=== PATIENT | female | born 1960 | race Caucasian/White ===

== ENCOUNTER 2021-01-06 16:25 | Emergency (ER) | payer MEDICARE, MEDICAID ==
[~2021-01-06] VITALS: Ht 160 cm; Wt 129.0 kg
--- NOTE | 2021-01-06 17:09 | Diagnostic Imaging Report ---
HISTORY: Pneumonia. TECHNIQUE: Frontal view of the chest. COMPARISON: None. FINDINGS: Lung volumes are normal. Haziness over the lung bases is thought to be due to overlying soft tissue. No dense consolidation is seen. There is no pleural effusion or pneumothorax. The cardiac silhouette is normal in size. IMPRESSION: 1. No acute pulmonary abnormality. Dictated by: Dictated on workstation # [id number]
[2021-01-06 17:17] LABS: BASOPHILS % (AUTO) 0 % (0-10); EOSINOPHILS # (AUTO) 0.2 10^3/uL (0.0-0.3); EOSINOPHILS % (AUTO) 2 % (0-10); HEMATOCRIT 45 % (35-52); LYMPHOCYTES # (AUTO) 1.3 10^3/uL (1.0-4.0); LYMPHOCYTES % (AUTO) 17 % (12-44); MEAN CORPUSCULAR HEMOGLOBIN 31 pg (25-34); MEAN CORPUSCULAR HGB CONC 31 g/dL (32-36); MEAN CORPUSCULAR VOLUME 98 fL (80-99); MONOCYTES # (AUTO) 0.3 10^3/uL (0.0-1.0); MONOCYTES % (AUTO) 5 % (0-12); NEUTROPHILS # (AUTO) 5.7 10^3/uL (1.8-7.8); NEUTROPHILS % (AUTO) 76 % (42-75); PLATELET COUNT 189 10^3/uL (130-400); WHITE BLOOD COUNT 7.5 10^3/uL (4.3-11.0)
[2021-01-06 17:34] LABS: ALBUMIN 3.6 GM/DL (3.2-4.5); POTASSIUM 4.5 MMOL/L (3.6-5.0)
[2021-01-06 17:36] LABS: INR 1.2 (0.8-1.4); PROTHROMBIN TIME PATIENT 15.3 SEC (12.2-14.7)
[2021-01-06 17:37] LABS: TOTAL PROTEIN 6.9 GM/DL (6.4-8.2)
[2021-01-06 17:39] LABS: BILIRUBIN,TOTAL 0.3 MG/DL (0.1-1.0)
[2021-01-06 17:40] LABS: CREATININE SERUM 1.31 MG/DL (0.60-1.30)
[2021-01-06] MEDS ORDERED: LACTATED RINGERS 1,000 ML IV ONE (18:00)
--- NOTE | 2021-01-06 18:40 | ED General ---
General Chief Complaint: Cough/Cold/Flu Symptoms Stated Complaint: DX: PNEUMONIA / LOW O2 Nursing Triage Note: PT TO ROOM 10 PER W/C PT CO OF COLD AND COUGH, WAS AT DR OFFICE THIS AM AND SAT WAS 84% PT STATES AT HOME HAS BEEN 94%, PT DENIES FEVERS. STATES HAD FIRST COVID SHOT APPROX 1 MONTH AGO. Nursing Sepsis Screen: No Definite Risk Source of Information: Patient Exam Limitations: No Limitations History of Present Illness Date Seen by Provider: Jan 06, 2021 Time Seen by Provider: 16:27 Initial Comments This 60-year-old woman presents to the emergency room as directed by the [facility] clinic in [place]. She reportedly was treated for pneumonia starting on December 29 with multiple antibiotics. She has been feeling much better. However, during her follow-up visit in the office today she was noted to have an oxygen saturation in the mid 80s. Patient reports her oxygen has never dropped below 93 at home. She does not have increased shortness of breath, fever, or other worsening symptoms. She does have reactive airway disease and has needed to use steroids in the past. She presents to the ER today because she was advised to, not because she feels ill. She has been on doxycycline and Cefpodoxime. 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 Allergies and Home Medications Allergies Coded Allergies: No Known Drug Allergies (Unverified , 01/06/21) Patient Home Medication List Home Medication List Reviewed: Yes Review of Systems Review of Systems Constitutional: no symptoms reported EENTM: no symptoms reported Respiratory: see HPI Cardiovascular: no symptoms reported Gastrointestinal: no symptoms reported Genitourinary: no symptoms reported : No Musculoskeletal: no symptoms reported Skin: no symptoms reported Psychiatric/Neurological: No Symptoms Reported Hematologic/Lymphatic: No Symptoms Reported Past Hyouqgx-Lgfocn-Vsbjxm Hx Past Med/Social Hx: Reviewed Nursing Past Med/Soc Hx Patient Social History Recent Infectious Disease Expo: No Past Medical History Surgeries: Yes (Necrotizing fasciitis of right hip area) Section Respiratory: Yes Asthma (Reactive airway disease) Cardiac: Yes Deep Vein Thrombosis Neurological: Yes (Tremor) : No Genitourinary: Yes Renal Failure (Chronic kidney disease) Gastrointestinal: No Musculoskeletal: No Endocrine: Yes (Empty sella syndrome) Diabetes, Insulin dep, Hypothyroidsim HEENT: No Cancer: No Psychosocial: Yes Bipolar, Depression Physical Exam Vital Signs Vital Signs - First Documented 01/06/21 17:03 Temp 35.7 Pulse 100 Resp 18 B/P (MAP) 102/72 (82) Pulse Ox 97 O2 Delivery Room Air Capillary Refill : Less Than 3 Seconds Height, Weight, BMI Height: '" Weight: lbs. oz. 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 Norm as Tested Skin: Normal Color, Warm/Dry Focused Exam Lactate Level 01/06/21 17:03: Lactic Acid Level 3.55*H Lactic Acid Level Laboratory Tests Test 01/06/21 17:03 Lactic Acid Level 3.55 MMOL/L (0.50-2.00) *H Progress/Results/Core Measures Suspected Sepsis Recent Fever Within 48 Hours: No Infection Criteria Present: None New/Unexplained Altered Menta: No Sepsis Screen: No Definite Risk SIRS Temperature: Pulse: 100 Respiratory Rate: 18 Laboratory Tests 01/06/21 17:03: White Blood Count 7.5 Blood Pressure 102 /72 Mean: 82 01/06/21 17:03: Lactic Acid Level 3.55*H Laboratory Tests 01/06/21 17:03: Creatinine 1.31H, INR Comment 1.2, Platelet Count 189, Total Bilirubin 0.3 Results/Orders Lab Results Laboratory Tests Test 01/06/21 17:03 Range/Units White Blood Count 7.5 4.3-11.0 10^3/uL Red Blood Count 4.59 3.80-5.11 10^6/uL Hemoglobin 14.0 11.5-16.0 g/dL Hematocrit 45 35-52 % Mean Corpuscular Volume 98 80-99 fL Mean Corpuscular Hemoglobin 31 25-34 pg Mean Corpuscular Hemoglobin Concent 31 L 32-36 g/dL Red Cell Distribution Width 16.9 H 10.0-14.5 % Platelet Count 189 130-400 10^3/uL Mean Platelet Volume 10.0 9.0-12.2 fL Immature Granulocyte % (Auto) 0 % Neutrophils (%) (Auto) 76 H 42-75 % Lymphocytes (%) (Auto) 17 12-44 % Monocytes (%) (Auto) 5 0-12 % Eosinophils (%) (Auto) 2 0-10 % Basophils (%) (Auto) 0 0-10 % Neutrophils # (Auto) 5.7 1.8-7.8 10^3/uL Lymphocytes # (Auto) 1.3 1.0-4.0 10^3/uL Monocytes # (Auto) 0.3 0.0-1.0 10^3/uL Eosinophils # (Auto) 0.2 0.0-0.3 10^3/uL Basophils # (Auto) 0.0 0.0-0.1 10^3/uL Immature Granulocyte # (Auto) 0.0 0.0-0.1 10^3/uL Prothrombin Time 15.3 H 12.2-14.7 SEC INR Comment 1.2 0.8-1.4 Activated Partial Thromboplast Time 38 H 24-35 SEC Sodium Level 140 135-145 MMOL/L Potassium Level 4.5 3.6-5.0 MMOL/L Chloride Level 104 98-107 MMOL/L Carbon Dioxide Level 23 21-32 MMOL/L Anion Gap 13 5-14 MMOL/L Blood Urea Nitrogen 21 H 7-18 MG/DL Creatinine 1.31 H 0.60-1.30 MG/DL Estimat Glomerular Filtration Rate 42 BUN/Creatinine Ratio 16 Glucose Level 131 H 70-105 MG/DL Lactic Acid Level 3.55 *H 0.50-2.00 MMOL/L Calcium Level 9.0 8.5-10.1 MG/DL Corrected Calcium 9.3 8.5-10.1 MG/DL Total Bilirubin 0.3 0.1-1.0 MG/DL Aspartate Amino Transf (AST/SGOT) 13 5-34 U/L Alanine Aminotransferase (ALT/SGPT) 12 0-55 U/L Alkaline Phosphatase 90 40-136 U/L Lactate Dehydrogenase 163 125-220 U/L C-Reactive Protein High Sensitivity 2.22 H 0.00-0.50 MG/DL Total Protein 6.9 6.4-8.2 GM/DL Albumin 3.6 3.2-4.5 GM/DL Procalcitonin 0.06 <0.10 NG/ML Coronavirus 2019 (ANJU) Not Detected Not Detecte Micro Results Microbiology 01/06/21 Influenza Types A,B Antigen (BEATRIZ) - Final, Complete My Orders Orders - BARRY RETANA MD Cbc With Automated Diff (01/06/21 16:27) Comprehensive Metabolic Panel (01/06/21 16:) Blood Culture (01/06/21 16:) Sputum Culture (01/06/21 16:) Urinalysis (01/06/21 16:) Urine Culture (01/06/21 16:) Protime With Inr (01/06/21:) Partial Thromboplastin Time (01/06/21:) Chest 1 View, Ap/Pa Only (01/06/21 16:) Ed Iv/Invasive Line Start (01/06/21 16:27) Ed Iv/Invasive Line Start (01/06/21 16:27) Vital Signs Adult Sepsis Patie Q15M (01/06/21 16:27) O2 (01/06/21 16:27) Remove Rings In Anticipation O (01/06/21 16:) Lactic Acid Analyzer (01/06/21 16:) Influenza A And B Antigens (01/06/21 16:) Procalcitonin (Pct) (01/06/21 16:27) Hs C Reactive Protein (01/06/21 16:27) LDH (01/06/21 16:27) Covid 19 Inhouse Test (01/06/21 16:27) Lactated Ringers (Lr 1000 Ml Iv Solution (01/06/21 18:00) Prednisone Tablet (Deltasone Tablet) (01/06/21 18:45) Medications Given in ED Current Medications Medications Dose Ordered Sig/Cory Route Start Time Stop Time Status Last Admin Dose Admin Lactated Ringer's 1,000 ml @ 0 mls/hr Q0M ONCE IV 01/06/21 18:00 01/06/21 18:01 DC 01/06/21 18:13 1,000 MLS/HR Vital Signs/I&O 01/06/21 17:03 Temp 35.7 Pulse 100 Resp 18 B/P (MAP) 102/72 (82) Pulse Ox 97 O2 Delivery Room Air Capillary Refill : Less Than 3 Seconds Blood Pressure Mean: 82 Progress Note : Progress Note Patient was seen and evaluated. Vital signs were stable on room air. She did not require any oxygen supplementation. Work-up showed no evidence of obvious bacterial infection. Lactic acid was elevated which was thought to reflect hydration status. Patient did appear somewhat dry based on labs, mucous membranes, blood pressure, etc. She did not appear septic. A dose of prednisone was administered in the ER to help with her COPD exacerbation. It was noted that patient has multiple sedating medications and her medication profile. This may have contributed to the hypoxia she experienced at the clinic. I am advising that she review her medications with her PCP. Diagnostic Imaging Diagonstic Imaging: Xray Plain Films/CT/US/NM/MRI: chest Comments Chest x-ray viewed by me and report reviewed. See report below: NAME: SONIA FARR [facility] REC#: [id number] PT STATUS: REG ER : 1960 PHYSICIAN: BARRY RETANA MD ADMIT DATE: 01/06/21/ER Signed Date of Exam:01/06/21 CHEST 1 VIEW, AP/PA ONLY HISTORY: Pneumonia. TECHNIQUE: Frontal view of the chest. COMPARISON: None. FINDINGS: Lung volumes are normal. Haziness over the lung bases is thought to be due to overlying soft tissue. No dense consolidation is seen. There is no pleural effusion or pneumothorax. The cardiac silhouette is normal in size. IMPRESSION: 1. No acute pulmonary abnormality. Dictated by: Dictated on workstation # [id number] Dict: 01/06/21 1706 Trans: 01/06/211721 AS6 [id number] Interpreted by: ROLAN HOFFMAN MD Electronically signed by: ROLAN HOFFMAN MD 01/06/21 172 Departure Impression Primary Impression: COPD exacerbation Additional Impression: Hypoxic episode Disposition: 01 HOME, SELF-CARE Condition: Improved Departure-Patient Inst. Decision time for Depature: 19:00 Referrals: EZEQUIEL HUMPHREYS (PCP) Primary Care Physician Patient Instructions: COPD Exacerbation, Adult ED Add. Discharge Instructions: Work toward quitting smoking as rapidly as possible. Continue to use your inhaled medications as previously prescribed. Complete the steroids as prescribed. Monitor blood sugars closely while on steroids and adjust insulin as needed. Complete the antibiotics you were previously prescribed. Call with questions or concerns. Follow-up with your primary care provider next week. You are on multiple giorgi ting medications which may be contributing to the low oxygen level you experienced in the clinic. Please discuss your medication profile with your doctor. Return to care if you have worsening symptoms. All discharge instructions reviewed with patient and/or family. Voiced understanding. Scripts Prednisone (Prednisone) 20 Mg Tab 20 MG PO DAILY, #3 TAB Prov: BARRY RETANA MD 01/06/21 Copy Copies To 1: DARRIUS PAYAN JOSHUA T MD Jan 06, 2021 18:40
[2021-01-06] MEDS ORDERED: predniSONE 20 MG TAB PO ONE (18:45)
[2021-01-06] MEDS ORDERED: PRD20T PO (19:04)
[2021-01-06 19:25] VITALS: BP 105/81
== END 2021-01-06 19:25 | disposition home or self-care (01) ==
LOC: EDUNIT# 16:25 → ER 16:27
DX: J44.1 Chronic obstructive pulmonary disease with (acute) exacerbation (principal); R09.02 Hypoxemia; Z20.822 Contact with and (suspected) exposure to COVID-19
CPT/HCPCS: 71045; 80053; 83605; 83615; 84145; 85025; 85610; 85730; 86141; 87040; 87804; 96360; 99284; U0002; 36415; 87635

== ENCOUNTER 2021-07-23 16:33 | Emergency (ER) | payer MEDICARE, MEDICAID ==
[~2021-07-23] VITALS: Ht 160 cm; Wt 142.0 kg
[~2021-07-23 16:33] MED LIST: PRD20T PO
--- NOTE | 2021-07-23 17:15 | ED Cardiac General ---
History of Present Illness General Stated Complaint: SOB Source: patient Exam Limitations: no limitations History of Present Illness Date Seen by Provider: Jul 23, 2021 Time Seen by Provider: 17:15 Initial Comments This is a 60-year-old female who presented to the ER via POV from the [facility] for low oxygen saturation of 90%, increased shortness of breath especially with activity. Clinic called and discussed concerns for CHF. Allergies and Home Medications Allergies Coded Allergies: No Known Drug Allergies (Unverified , 01/06/21) Patient Home Medication List Home Medication List Reviewed: Yes Prednisone (Prednisone) 20 Mg Tab, 20 MG PO DAILY Prescribed by: BARRY LEMUS on 01/06/211903 Past Vguocsj-Kuarcd-Dczgxd Hx Past Medical History Surgeries: Yes (Necrotizing fasciitis of right hip area) Section Respiratory: Yes Asthma Cardiac: Yes Deep Vein Thrombosis Neurological: Yes (Tremor) Genitourinary: Yes Renal Failure Gastrointestinal: No Musculoskeletal: No Endocrine: Yes (Empty sella syndrome) Diabetes, Insulin dep, Hypothyroidsim HEENT: No Cancer: No Psychosocial: Yes Bipolar, Depression Physical Exam Vital Signs Vital Signs - First Documented 07/23/21 17:11 Temp 36.2 Pulse 93 Resp 24 B/P (MAP) 129/88 (102) Pulse Ox 95 O2 Delivery Room Air Capillary Refill : Height, Weight, BMI Height: '" Weight: lbs. oz. kg; 50.00 BMI Method: Progress/Results/Core Measures Results/Orders Lab Results Laboratory Tests Test 07/23/21 17:05 07/23/21 17:33 Range/Units Sodium Level 138 135-145 MMOL/L Potassium Level 4.6 3.6-5.0 MMOL/L Chloride Level 106 98-107 MMOL/L Carbon Dioxide Level 20 L 21-32 MMOL/L Anion Gap 12 5-14 MMOL/L Blood Urea Nitrogen 12 7-18 MG/DL Creatinine 1.29 0.60-1.30 MG/DL Estimat Glomerular Filtration Rate 42 BUN/Creatinine Ratio 9 Glucose Level 198 H 70-105 MG/DL Calcium Level 9.0 8.5-10.1 MG/DL Corrected Calcium 9.2 8.5-10.1 MG/DL Magnesium Level 1.6 1.6-2.4 MG/DL Total Bilirubin 0.3 0.1-1.0 MG/DL Aspartate Amino Transf (AST/SGOT) 14 5-34 U/L Alanine Aminotransferase (ALT/SGPT) 15 0-55 U/L Alkaline Phosphatase 90 40-136 U/L Myoglobin 123.8 H 10.0-92.0 NG/ML Total Protein 6.9 6.4-8.2 GM/DL Albumin 3.8 3.2-4.5 GM/DL White Blood Count 8.0 4.3-11.0 10^3/uL Red Blood Count 4.96 3.80-5.11 10^6/uL Hemoglobin 15.1 11.5-16.0 g/dL Hematocrit 49 35-52 % Mean Corpuscular Volume 98 80-99 fL Mean Corpuscular Hemoglobin 30 25-34 pg Mean Corpuscular Hemoglobin Concent 31 L 32-36 g/dL Red Cell Distribution Width 17.3 H 10.0-14.5 % Platelet Count 208 130-400 10^3/uL Mean Platelet Volume 9.5 9.0-12.2 fL Immature Granulocyte % (Auto) 0 % Neutrophils (%) (Auto) 77 H 42-75 % Lymphocytes (%) (Auto) 14 12-44 % Monocytes (%) (Auto) 5 0-12 % Eosinophils (%) (Auto) 3 0-10 % Basophils (%) (Auto) 0 0-10 % Neutrophils # (Auto) 6.2 1.8-7.8 10^3/uL Lymphocytes # (Auto) 1.1 1.0-4.0 10^3/uL Monocytes # (Auto) 0.4 0.0-1.0 10^3/uL Eosinophils # (Auto) 0.2 0.0-0.3 10^3/uL Basophils # (Auto) 0.0 0.0-0.1 10^3/uL Immature Granulocyte # (Auto) 0.0 0.0-0.1 10^3/uL Prothrombin Time 14.0 12.2-14.7 SEC INR Comment 1.0 0.8-1.4 Activated Partial Thromboplast Time 31 24-35 SEC D-Dimer < 0.27 0.00-0.49 UG/ML Troponin I < 0.028 <0.028 NG/ML B-Type Natriuretic Peptide 18.8 <100.0 PG/ML My Orders Orders - MELODIE,STORMY D [employer]ING [employer] WORKER Cbc With Automated Diff (07/23/21 17:05) Magnesium (07/23/21 17:05) Chest 1 View, Ap/Pa Only (07/23/21 17:05) Ekg Tracing (07/23/21 17:05) Comprehensive Metabolic Panel (07/23/21 17:05) Myoglobin Serum (07/23/21 17:05) Protime With Inr (07/23/21 17:05) Partial Thromboplastin Time (07/23/21 17:05) O2 (07/23/21 17:05) Monitor-Rhythm Ecg Trace Only (07/23/21 17:05) Ed Iv/Invasive Line Start (07/23/21 17:05) BNP (07/23/21 17:05) Fibrin Degradation Products (07/23/21 17:05) Troponin I (07/23/21 17:05) Prednisone Tablet (Deltasone Tablet) (07/23/21 18:45) Vital Signs/I&O 07/23/21 17:11 Temp 36.2 Pulse 93 Resp 24 B/P (MAP) 129/88 (102) Pulse Ox 95 O2 Delivery Room Air Initial ECG Impression Date: Jul 23, 2021 Initial ECG Impression Time: 17:45 Initial ECG Rate: 87 Initial ECG Rhythm: Normal Sinus Initial ECG Intervals SD-185, QRSD-93, QT-396, QTc-477 SR, no ST segment elevation or depression Initial ECG Impression: Normal Diagnostic Imaging Diagonstic Imaging: Xray Plain Films/CT/US/NM/MRI: chest Comments [facility], [place], [place] NAME: SONIA FARR [facility] REC#: [id number] PT STATUS: REG ER : 1960 PHYSICIAN: LIBBY SEWELL [employer]ING [employer] WORKER ADMIT DATE: 07/23/21/ER Draft Date of Exam:07/23/21 CHEST 1 VIEW, AP/PA ONLY EXAMINATION: Chest, one view. HISTORY: Chest pain. COMPARISON: 01/06/2021. FINDINGS: The lungs are clear without edema or pneumonia. No pleural effusion or pneumothorax. Heart size is normal. IMPRESSION: 1. Clear lungs. Dictated on workstation # [id number] Dict: 07/23/21 1748 Trans: 07/23/21 175 [id number] Interpreted by: KRISTINE GONZALEZ MD Electronically signed by: Reviewed: Reviewed by Me Departure Impression Primary Impression: COPD exacerbation Disposition: HOME, SELF-CARE Condition: Improved Departure-Patient Inst. Referrals: [facility]/ (PCP) Primary Care Physician ANTONELLA TOBAR APRN (Family) Primary Care Physician Patient Instructions: COPD Exacerbation, Adult ED Add. Discharge Instructions: Plan: 1. Follow up with your doctor early next week. 2. Take Prednisone as directed and complete full course. 3. Use your albuterol every 4 hours as needed for shortness of breath. 4. Return for any new, concerning, or worsening symptoms. Scripts Doxycycline Hyclate (Doxycycline Hyclate) 100 Mg Tablet 100 MG PO BID for 7 Days, #14 TAB 0 Refills Prov: LIBBY SEWELL [employer] 07/23/21 Prednisone (Prednisone) 20 Mg Tab 40 MG PO DAILY for 5 Days, #10 TAB 0 Refills Prov: LIBBY SEWELL [employer] WORK[employer] 07/23/21 LIBBY SEWELL APRN Jul 23, 2021 17:15
[2021-07-23 17:43] LABS: BASOPHILS % (AUTO) 0 % (0-10); EOSINOPHILS # (AUTO) 0.2 10^3/uL (0.0-0.3); EOSINOPHILS % (AUTO) 3 % (0-10); HEMATOCRIT 49 % (35-52); HEMOGLOBIN 15.1 g/dL (11.5-16.0); LYMPHOCYTES # (AUTO) 1.1 10^3/uL (1.0-4.0); LYMPHOCYTES % (AUTO) 14 % (12-44); MEAN CORPUSCULAR HEMOGLOBIN 30 pg (25-34); MEAN CORPUSCULAR HGB CONC 31 g/dL (32-36); MEAN CORPUSCULAR VOLUME 98 fL (80-99); MEAN PLATELET VOLUME 9.5 fL (9.0-12.2); MONOCYTES # (AUTO) 0.4 10^3/uL (0.0-1.0); MONOCYTES % (AUTO) 5 % (0-12); NEUTROPHILS # (AUTO) 6.2 10^3/uL (1.8-7.8); NEUTROPHILS % (AUTO) 77 % (42-75); PLATELET COUNT 208 10^3/uL (130-400)
--- NOTE | 2021-07-23 17:50 | Diagnostic Imaging Report ---
EXAMINATION: Chest, one view. HISTORY: Chest pain. COMPARISON: 01/06/2021. FINDINGS: The lungs are clear without edema or pneumonia. No pleural effusion or pneumothorax. Heart size is normal. IMPRESSION: 1. Clear lungs. Dictated by: Dictated on workstation # [id number]
[2021-07-23 17:57] LABS: ALBUMIN 3.8 GM/DL (3.2-4.5)
[2021-07-23 17:58] LABS: POTASSIUM 4.6 MMOL/L (3.6-5.0)
[2021-07-23 18:00] LABS: TOTAL PROTEIN 6.9 GM/DL (6.4-8.2)
[2021-07-23 18:02] LABS: BILIRUBIN,TOTAL 0.3 MG/DL (0.1-1.0)
[2021-07-23 18:04] LABS: CREATININE SERUM 1.29 MG/DL (0.60-1.30)
[2021-07-23 18:06] LABS: MAGNESIUM 1.6 MG/DL (1.6-2.4)
[2021-07-23] MEDS ORDERED: DOXY100T2 PO (18:43)
[2021-07-23] MEDS ORDERED: PRD20T PO (18:43)
[2021-07-23] MEDS ORDERED: DOXYCYCLINE 100 MG (VIBRAMYCIN) TABLET PO ONE (18:45)
[2021-07-23] MEDS ORDERED: predniSONE 20 MG TAB PO ONE (18:45)
[2021-07-23 18:50] VITALS: BP 102/70
== END 2021-07-23 18:50 | disposition home or self-care (01) ==
LOC: EDUNIT# 16:33 → ER 16:35
DX: J44.1 Chronic obstructive pulmonary disease with (acute) exacerbation (principal); E11.9 Type 2 diabetes mellitus without complications; Z79.52 Long term (current) use of systemic steroids
CPT/HCPCS: 36415; 71045; 80053; 83735; 83874; 83880; 84484; 85025; 85379; 85610; 85730; 93005; 93041